=== PATIENT | female | born 1975 | race Caucasian/White ===

== ENCOUNTER 2016-12-30 10:17 | Inpatient (IN) | payer BC ==
[~2016-12-30] VITALS: Ht 172.7 cm; Wt 105.2 kg
[2016-12-30 11:00] VITALS: BP 90/53
[2016-12-30] MEDS ORDERED: CALCIUM CARBONATE 500 MG TAB.CHEW PO PRN (12:00)
[2016-12-30] MEDS ORDERED: 0.9 % SODIUM CHLORIDE 10 ML DISP.SYRIN. IV PRN (12:00)
[2016-12-30] MEDS ORDERED: ZOLPIDEM 5 MG TABLET. PO PRN (12:00)
[2016-12-30] MEDS ORDERED: ONDANSETRON PF 4 MG/2 ML VIAL. IV PRN (12:00)
[2016-12-30] MEDS ORDERED: ACETAMINOPHEN 325 MG TABLET. PO PRN (12:00)
[2016-12-30] MEDS ORDERED: MAGNESIUM HYDROXIDE 2,400 MG/30 ML ORAL.SUSP. PO PRN (12:00)
[2016-12-30] MEDS ORDERED: MAG HYDROX/ALUMINUM HYD/SIMETH 30 ML ORAL.SUSP PO PRN (12:00)
[2016-12-30] MEDS ORDERED: diphenhydrAMINE HCL 25 MG CAPSULE PO PRN (12:00)
[2016-12-30] MEDS ORDERED: NALOXONE 0.4 MG/ML VIAL. IV PRN (12:00)
[2016-12-30] MEDS ORDERED: diphenhydrAMINE 50 MG/ML VIAL IV PRN (12:00)
[2016-12-30 12:40] LABS: CALCIUM 8.8 mg/dL (8.5-10.1); CREATININE 0.8 mg/dL (0.6-1.0); GFR 78.3; POTASSIUM 3.4 mmol/L (3.5-5.1)
[2016-12-30 12:50] LABS: BASO % 0 % (0-3); EOS % 2 % (0-3); HEMATOCRIT 36.1 % (36.0-47.0); HEMOGLOBIN 12.6 g/dL (12.0-15.5); LYMPH # 2.7 x10^3/uL (1.0-4.8); LYMPH % 29 % (24-48); MEAN CORPUSCULAR HEMOGLOBIN 31 pg (25-35); MEAN CORPUSCULAR HGB CONC 35 g/dL (31-37); MEAN CORPUSCULAR VOLUME 89 fL (79-100); MONO % 4 % (0-9); NEUT % 65 % (31-73); PLATELET COUNT 247 x10^3/uL (140-400); RED BLOOD COUNT 4.06 x10^6/uL (3.50-5.40); RED CELL DISTRIBUTION WIDTH 14.2 % (11.5-14.5); WHITE BLOOD COUNT 9.1 x10^3/uL (4.0-11.0)
[2016-12-30] MEDS: HYDROmorphone 2 MG/ML VIAL IV PRN ×2 (12:50→15:36)
[2016-12-30] MEDS: DEXAMETHASONE SOD PHOS 4 MG/ML VIAL IV SCH ×3 (12:50→23:01)
[2016-12-30] MEDS: METHOCARBAMOL 750 MG TABLET PO SCH ×2 (12:50→20:48)
[2016-12-30 13:00] LABS: PROTHROMBIN TIME PATIENT 12.6 SEC (11.7-14.0)
--- NOTE | 2016-12-30 13:36 | PDOC1 ---
H & P H&P Ms. Nice presents to clinic with worsening pain and function in the right lower extremity. She reports that this has worsened over the last few weeks without a clear inciting event. She reports tingling and shooting pain down the right leg and thigh anteriorly to the foot. She reports decreased sensation in the right leg, as well. Over the past couple weeks, she reports difficulty maintaining urinary stream and reports some episodes of incontinent over the past couple days. She reports that she is able to ambulate but requires much assistance due to right leg pain and weakness. She presents with new lumbar MRI. Current Medication: Taking Gildess FE 1.5/0.03(ethinyl estradiol-norethindrone) 30 mcg-1.5 mg tablet 1 tab( s) orally once a day cyclobenzaprine 10 mg tablet 1 tab(s) orally PRN Gildess FE 1/0.2(ethinyl estradiol-norethindrone) 1/20 tablet TAKE 1 TABLET DAILY Neurontin(gabapentin) 300 mg capsule 1 cap(s) orally daily Aleve(naproxen) sodium 220 mg tablet 1 tab(s) orally every 8 hours Medication List reviewed and reconciled with the patient Medical History: back pain, contraception. Allergies/Intolerance: morphine, hydrocodone, phenothiazine, compazine, reglan, augmentin, omnicef Surgical History: childbirth , childbirth x2 twins , tonsillectomy 1976, gallbladder 2011, discectomy Hospitalization: see list above , [facility] for Discectomy 01/2015 Family History: Mother: alive Father: alive Maternal Grand Mother: Maternal Grand Father: Paternal Grand Mother: Paternal Grand Father: 1 brother(s) - healthy. 1 son(s) , 2 daughter(s) - healthy. twin-girls. Social History: Tobacco Questionnaire Are you a:: never smoker . Tobacco History: Has never smoked. Alcohol Screening SF Points: 1, Interpretation: Negative. Marital Status : . Occupation: [employer]. ROS: MUSCULOSKELETAL admits" options="" propid="91" itemid="[id number]" categoryid="[id number]" encounterid= "[id number]"Low back pain admits. denies" options="no,yes" propid="91" itemid= "[id number]" categoryid="[id number]" encounterid="[id number]"Joint pain denies. denies" options="no,yes" propid="91" itemid="722911" categoryid="[id number]" encounterid= "[id number]"Neck pain denies. NEUROLOGY admits" options="denies,admits" propid="91" itemid="[id number]" categoryid="[id number]" encounterid="[id number]"Paresthesia/numbness admits. denies" options="no,yes" propid="91" itemid="272135" categoryid="[id number]" encounterid="[id number]"Headache denies. denies" options="no,yes" propid="91" itemid="925015" categoryid="[id number] " encounterid="[id number]"Visual changes denies. Objective: Vitals: Ht 68 in, Wt unable, HR 107 /min, SaO2 97 Past Results: Examination: No acute distress, well developed and well nourished" categoryPropId="[id number]" examid="[id number]"GENERAL APPEARANCE: No acute distress, well developed and well nourished. normocephalic, atraumatic; pupils equal, round, and reactive to light and accomodation" categoryPropId="[id number]" examid="[id number]"HEENT: normocephalic, atraumatic; pupils equal, round, and reactive to light and accomodation. supple" categoryPropId="[id number]" examid="[id number]"NECK: supple. pulse regular" categoryPropId="86062" examid="[id number]"HEART: pulse regular. normal shape and expansion" categoryPropId="[id number]" examid="[id number]"CHEST: normal shape and expansion. respirations even and nonlabored" categoryPropId="[id number]" examid="[id number]"LUNGS: respirations even and nonlabored. alert and oriented x 4, speech fluent, memory and general fund of knowledge are baseline, cooperative with exam, cranial nerves II-XII intact, motor strength normal in upper and lower extremities except 3-/5 right knee extension right extensor hallucis, 4-/5 right plantarflexion, DTR hyporeflexive left patellar relative to the right, sensation decreased to light touch in the right leg relative to the left" categoryPropId="[id number]" examid="[id number]"NEUROLOGIC EXAM: alert and oriented x 4, speech fluent, memory and general fund of knowledge are baseline, cooperative with exam, cranial nerves II-XII intact, motor strength normal in upper and lower extremities except 3-/5 right knee extension right extensor hallucis, 4-/5 right plantarflexion, DTR hyporeflexive left patellar relative to the right, sensation decreased to light touch in the right leg relative to the left. warm and dry, good turgor" categoryPropId="[id number]" examid="[id number]"SKIN: warm and dry, good turgor. no cyanosis, clubbing, or edema" categoryPropId="[id number]" examid="[id number] "EXTREMITIES: no cyanosis, clubbing, or edema. palpable in both legs" categoryPropId="[id number]" examid="[id number]"PERIPHERAL PULSES: palpable in both legs. no swelling or deformity in the extremities, muscle tone appears normal" categoryPropId="[id number]" examid="[id number]"MUSCULOSKELETAL: no swelling or deformity in the extremities, muscle tone appears normal. appropriate mood and affect, judgement and insight appear normal" categoryPropId ="[id number]" examid="[id number]"PSYCH appropriate mood and affect, judgement and insight appear normal. Assessment: Assessment: Herniated lumbar intervertebral disc - M51.26 (Primary) Lumbar radicular pain - M54.16 Weakness - R53.1 Plan: Treatment: Herniated lumbar intervertebral disc Notes: Imaging findings and therapeutic options were discussed. Given the severity and nature of the symptoms, physical exam findings, and radiographic findings, feel that she may benefit from surgical decompression. A right L3-4 hemilaminotomy with discectomy was discussed with explanation of potential risks , benefits, and expectations. After careful consideration of these things, she elects to proceed. Will admit from clinic and plan to complete the aforementioned surgery. All questions answered. All in agreement. Others Notes: There is an MRI lumbar spine from 12/29/16. Some degenerative changes are noted. There are post-surgical changes noted left L4-5 without significant stenosis or recurrent disk. There is a new disk herniation in the right lateral recess at L3-4 with mass effect of the neural elements at this location. There is no central stenosis. CAMI WEEMS MD Dec 30, 2016 13:36
[2016-12-30] MEDS ORDERED: DEXTROSE 50% 25 GM / 50ML DISP.SYRIN. IV PRN (13:45)
[2016-12-30] MEDS ORDERED: GABA600T2 PO (14:13)
[2016-12-30] MEDS ORDERED: RANI150C PO (14:13)
[2016-12-30] MEDS ORDERED: OMEP20CA9 PO (14:13)
[2016-12-30] MEDS ORDERED: LISI1TAB7 PO (14:13)
[2016-12-30] MEDS ORDERED: POLY17PO29 PO (14:13)
[2016-12-30] MEDS ORDERED: CETI10TA22 PO (14:13)
[2016-12-30] MEDS ORDERED: DULO60CA6 PO (14:13)
[2016-12-30] MEDS ORDERED: LISD20CA4 PO (14:13)
[2016-12-30 15:00] VITALS: BP 111/66
[2016-12-30] MEDS: POLYETHYLENE GLYCOL 3350 17 GM PACKET. PO SCH (15:00)
[2016-12-30] MEDS: LISINOPRIL 20 MG TABLET PO SCH (15:00)
[2016-12-30] MEDS: DULoxetine HCL 30 MG CAPSULE.DR PO SCH (15:00)
[2016-12-30] MEDS: CETIRIZINE HCL 10 MG TABLET. PO SCH (15:00)
[2016-12-30] MEDS: hydroCHLOROthiazide 25 MG TABLET PO SCH (15:00)
[2016-12-30] MEDS ORDERED: FLU VACC QS2017-18 (36MOS+)/PF 0.5 ML SYRINGE. VAX IM ONE (17:00)
[2016-12-30] MEDS: FERROUS SULFATE 325 MG TABLET. PO SCH (17:18)
[2016-12-30] MEDS: CALCIUM CARB/VIT D3 500/200 TABLET. PO SCH (17:18)
[2016-12-30] MEDS: traMADol 50 MG TABLET PO PRN ×2 (17:24→23:01)
[2016-12-30] MEDS: INSULIN ASPART 300 UNITS/3 ML INSULN.PEN SQ SCH (17:33)
[2016-12-30 19:00] VITALS: BP 128/77
[2016-12-30] MEDS: GABAPENTIN 300 MG CAPSULE. PO SCH (20:49)
[2016-12-30] MEDS: SENNOSIDES/DOCUSATE 8.6/50MG TABLET. PO SCH (20:55)
[2016-12-30] MEDS: DOCUSATE SODIUM 100 MG CAPSULE. PO SCH (20:55)
[2016-12-30] MEDS ORDERED: INSULIN ASPART 300 UNITS/3 ML INSULN.PEN SQ ONE (21:00)
[2016-12-30 23:11] VITALS: BP 126/66
[2016-12-31] VITALS (12 sets, daily range): BP systolic 103–165; BP diastolic 49–100
[2016-12-31] MEDS: HYDROmorphone 2 MG/ML VIAL IV PRN ×7 (02:56→13:19)
[2016-12-31] MEDS: traMADol 50 MG TABLET PO PRN ×2 (04:31→18:14)
[2016-12-31] MEDS: DEXAMETHASONE SOD PHOS 4 MG/ML VIAL IV SCH ×3 (05:58→17:55)
[2016-12-31] MEDS ORDERED: fentaNYL PF VIAL 100 MCG/2 ML VIAL IV PRN ×2 (07:00)
[2016-12-31] MEDS ORDERED: LIDOCAINE 1% PF 2 ML VIAL. ID PRN (07:00)
[2016-12-31] MEDS ORDERED: ONDANSETRON PF 4 MG/2 ML VIAL. IV PRN (07:00)
[2016-12-31] MEDS ORDERED: IV RINGERS,LACTATED 1000ML 1,000 ML IV SCH (07:00)
[2016-12-31] MEDS ORDERED: LIDOCAINE 1%/EPI 1:100,000 20 ML VIAL. ONE (07:02)
[2016-12-31] MEDS ORDERED: THROMBIN TOPICAL 20,000 UNIT SPRAY.SYRN KIT TP ONE (07:03)
[2016-12-31] MEDS ORDERED: BUPIVACAINE 0.5% 50 ML VIAL. ONE (07:03)
[2016-12-31] MEDS ORDERED: GELATIN SPONGE SIZE 100. ONE (07:03)
[2016-12-31] MEDS: PANTOPRAZOLE 40 MG TABLET.DR. PO SCH (07:30)
[2016-12-31] MEDS: FERROUS SULFATE 325 MG TABLET. PO SCH ×2 (08:00→17:50)
[2016-12-31] MEDS ORDERED: BACITRACIN 50,000 UNIT in IV NORMAL SALINE 1000ML BAG 1,000 ML IRR ONE (08:00)
[2016-12-31] MEDS: CALCIUM CARB/VIT D3 500/200 TABLET. PO SCH ×2 (08:00→17:49)
[2016-12-31] MEDS: INSULIN ASPART 300 UNITS/3 ML INSULN.PEN SQ SCH ×3 (08:00→17:55)
[2016-12-31] MEDS: DULoxetine HCL 30 MG CAPSULE.DR PO SCH (08:01)
[2016-12-31] MEDS: DOCUSATE SODIUM 100 MG CAPSULE. PO SCH ×2 (08:01→20:41)
[2016-12-31] MEDS: hydroCHLOROthiazide 25 MG TABLET PO SCH (08:01)
[2016-12-31] MEDS: POLYETHYLENE GLYCOL 3350 17 GM PACKET. PO SCH (08:01)
[2016-12-31] MEDS: METHOCARBAMOL 750 MG TABLET PO SCH ×3 (08:02→20:41)
[2016-12-31] MEDS: LISINOPRIL 20 MG TABLET PO SCH (08:02)
[2016-12-31] MEDS: MULTIVITAMIN with MINERAL TABLET. PO SCH (08:02)
[2016-12-31] MEDS: CETIRIZINE HCL 10 MG TABLET. PO SCH (08:02)
[2016-12-31] MEDS: SENNOSIDES/DOCUSATE 8.6/50MG TABLET. PO SCH ×2 (08:02→20:41)
[2016-12-31] MEDS ORDERED: SUCCINYLCHOLINE 200 MG/10 ML VIAL. ONE (08:04)
[2016-12-31] MEDS ORDERED: PROPOFOL 20 ML IV ONE (08:04)
[2016-12-31] MEDS ORDERED: ROCURONIUM 100 MG/10 ML VIAL. ONE (08:04)
[2016-12-31] MEDS ORDERED: LIDOCAINE 2% PF Vial for OR 5 ML VIAL. ONE (08:04)
[2016-12-31] MEDS ORDERED: fentaNYL PF VIAL 100 MCG/2 ML VIAL ONE (08:05)
[2016-12-31] MEDS ORDERED: 0.9 % SODIUM CHLORIDE 50 ML VIAL. IJ ONE (08:09)
[2016-12-31] MEDS ORDERED: PROPOFOL 50 ML IV ONE ×2 (08:29→10:33)
[2016-12-31] MEDS ORDERED: REMIFENTANIL 2 MG VIAL. IV ONE (08:29)
[2016-12-31 08:33] LABS: NEG OBC UR NEG; POS OBC UR POS
[2016-12-31] MEDS ORDERED: NON FORMULARY ITEM (Lisdexamfetamine Dimesylate (Vyvanse) 1 CAP) PO SCH (09:00)
[2016-12-31] MEDS ORDERED: NON FORMULARY ITEM (Lisinopril/Hydrochlorothiazide (Lisinopril-Hctz 20-25 Mg Tab) 1 TAB) PO SCH (09:00)
[2016-12-31] MEDS ORDERED: CLINDAMYCIN 600MG PREMIX 50 ML IV ONE (09:06)
[2016-12-31] MEDS ORDERED: DEXAMETHASONE SOD PHOS 20 MG/5 ML VIAL. ONE (09:43)
[2016-12-31] MEDS ORDERED: DESFLURANE > 120 MINUTES IH ONE (09:43)
[2016-12-31] MEDS ORDERED: CLINDAMYCIN 600MG PREMIX 50 ML IV SCH (09:45)
[2016-12-31] MEDS ORDERED: ONDANSETRON PF 4 MG/2 ML VIAL. ONE (10:12)
--- NOTE | 2016-12-31 11:15 | PDOC ---
BRIEF OPERATIVE NOTE Date: Dec 31, 2016 Pre-Op Diagnosis lumbar disk herniation, lumbar radiculopathy, weakness Post-Op Diagnosis same Procedure Performed right L3-4 hemilaminotomy with discectomy Surgeon Campbell Gandy Dancer none Anesthesiologist Bladimir Anesthesia Type: General Blood Loss 25mL Specimens Obtained disk and decompression Findings large disk herniation with mass effect on the adjacent neural elements, neuromonitoring improved upon completion of procedure Complications none apparent CAMI WEEMS MD Dec 31, 2016 11:15
[2016-12-31] MEDS ORDERED: HYDROmorphone 2 MG/ML VIAL ONE (11:31)
--- NOTE | 2016-12-31 11:51 | OP ---
DATE OF SURGERY: 12/31/2016 PREOPERATIVE DIAGNOSES: Lumbar disk herniation, lumbar radiculopathy, weakness. POSTOPERATIVE DIAGNOSES: Lumbar disk herniation, lumbar radiculopathy, weakness. PROCEDURE: Right lumbar 3-4 hemilaminotomy with diskectomy. SURGEON: Osmel Weems MD CLAM SHUCKING MACHINE TENDER: None. ANESTHESIA: General. COMPLICATIONS: None intraprocedurally. INDICATIONS FOR THE PROCEDURE: The patient is a 41-year-old female who over the past few weeks has developed right lower extremity pain and weakness. Imaging revealed a prominent disk herniation on the right at lumbar 3-4 with significant mass effect on the neural elements. Based on her physical exam complaints and imaging, it was felt that decompression with diskectomy may be of significant benefit. Please refer to the patient chart for additional details. DESCRIPTION OF PROCEDURE: After informed consent was obtained, the patient was brought into the operating room. She was placed under general anesthesia. She was placed in prone position on the Pieter table. All pressure points were checked and padded appropriately. Neuro monitoring was instituted and baseline potentials were obtained. The lumbar region was prepped and draped in the usual sterile fashion. The patient had a previous lumbar incision. Fluoroscopy was utilized to localize on appropriate incision location. The prior incision was reopened at the cephalad aspect and with a 10 blade scalpel extended slightly cephalad, centered over the region of lumbar 3-4. Monopolar electrocautery was utilized to dissect the avascular midline to the spinous processes of lumbar 3 and lumbar 4 and rightward across the lamina at this location. Level was verified with fluoroscopy prior to the initiation of decompression. A right hemilaminotomy was performed at lumbar 3-4 utilizing pneumatic drill as well as Kerrison rongeur. The underlying ligament was gently dissected from thecal sac with a Santa and removed with Kerrison rongeur. The neural elements were gently retracted medially and a prominent annulus was identified. An 11 blade scalpel was utilized to create a small annulotomy and large amount of disk material emerged under pressure. This was removed with a pituitary rongeur. Additional disk material was gently teased posterolaterally with a blunt nerve hook and then removed with pituitary rongeur. Upon completion of these things, the neural elements were noted to be very well decompressed. This was verified with direct visualization as well as gentle palpation with a [place] and a blunt nerve hook. Also, it was noted that neuro monitoring potentials were improved compared to baseline upon completion of decompression and at the completion of the procedure. Once decompression was complete, attention was turned to closure. Pristine hemostasis was achieved with FloSeal, cottonoids, some use of irrigation and some use of bipolar electrocautery. The wound was generously irrigated with antibiotic irrigation prior to the final closure. The muscles and fascia were then reapproximated with 0 Vicryl in a simple interrupted fashion. The subcutaneous tissues were reapproximated with 2-0 Vicryl in interrupted inverted fashion. The skin was reapproximated with 4-0 Vicryl in running subcuticular fashion. Mastisol and Steri-Strips were applied and the wound was dressed with Telfa and Tegaderm. At the end of procedure, all needle and sponge counts were correct x 2. The patient was extubated in the operating room and taken to recovery in stable condition. There were no intraprocedural complications apparent. OSMEL WEEMS MD DR: CRISTA/karen JOB#: [id number] / [id number]
[2016-12-31] MEDS ORDERED: INFLUENZA VAX SCREEN BY RX. MC ONE (14:00)
[2016-12-31] MEDS: GABAPENTIN 300 MG CAPSULE. PO SCH (20:41)
[2016-12-31] MEDS ORDERED: POLYETHYLENE GLYCOL 3350 17 GM PACKET. PO ONE (21:00)
[2017-01-01] MEDS: traMADol 50 MG TABLET PO PRN ×3 (01:29→12:29)
[2017-01-01 03:00] VITALS: BP 98/60
[2017-01-01] MEDS: PANTOPRAZOLE 40 MG TABLET.DR. PO SCH (06:22)
[2017-01-01 07:00] VITALS: BP 92/56
[2017-01-01] MEDS: LISINOPRIL 20 MG TABLET PO SCH (08:30)
[2017-01-01] MEDS: CETIRIZINE HCL 10 MG TABLET. PO SCH (08:31)
[2017-01-01] MEDS: FERROUS SULFATE 325 MG TABLET. PO SCH (08:31)
[2017-01-01] MEDS: MULTIVITAMIN with MINERAL TABLET. PO SCH (08:31)
[2017-01-01] MEDS: METHOCARBAMOL 750 MG TABLET PO SCH (08:31)
[2017-01-01] MEDS: DULoxetine HCL 30 MG CAPSULE.DR PO SCH (08:31)
[2017-01-01] MEDS: SENNOSIDES/DOCUSATE 8.6/50MG TABLET. PO SCH (08:32)
[2017-01-01] MEDS: DOCUSATE SODIUM 100 MG CAPSULE. PO SCH (08:32)
[2017-01-01] MEDS: CALCIUM CARB/VIT D3 500/200 TABLET. PO SCH (08:32)
[2017-01-01] MEDS: hydroCHLOROthiazide 25 MG TABLET PO SCH (08:32)
[2017-01-01] MEDS: POLYETHYLENE GLYCOL 3350 17 GM PACKET. PO SCH (08:33)
[2017-01-01] MEDS ORDERED: FAMOTIDINE 20 MG TABLET. PO SCH (09:00)
--- NOTE | 2017-01-01 10:55 | DISCH ---
DISCHARGE INSTRUCTIONS Condition on Discharge Condition on Discharge: Stable Activity After Discharge Activity Instructions for Disc: Avoid exertion, Other, see below (avoid excess bending or twisting, no liftinge more than 10 lbs, no strenuous activity) Bathing Instructions: Shower-keep dressing dry Lifting Instructions after Dis: Do not lift >10 pounds Wound Incision Care Wound/Incision Care: Ice to area for comfort, Other, see below (keep incision clean and dry; do not soak, scrub, or submerge incision; may remove dressing day three after surgery and leave open to air; may cover as needed with breathable gauze and tape thereafter) Contacting the after DC Call your doctor for: Concerns you may have Follow-Up Follow up with: Dr. Weems in two weeks [phone] CAMI WEEMS MD Jan 01, 2017 10:55
--- NOTE | 2017-01-01 10:58 | PDOC ---
SUBJECTIVE Subjective Denies acute complaints. Reports resolution of right leg pain and numbness. Denies any bowel/bladder dysfunction. Reports leg strength is now normal. Has ambulated with therapy without significant problems. OBJECTIVE Vital Signs Vital Signs Date Time Temp Pulse Resp B/P (MAP) Pulse Ox O2 Delivery O2 Flow Rate FiO2 01/01/17 09:14 Room Air 01/01/17 08:30 77 92/56 01/01/17 07:45 Room Air 01/01/17 07:00 97.4 77 20 92/56 (68) 96 Room Air 97.4 01/01/17 06:26 20 98 Room Air 01/01/17 03:00 97.9 67 16 98/60 (73) 98 Room Air 97.9 01/01/17 02:30 20 98 01/01/17 01:29 20 98 Room Air 12/31/16 23:00 97.7 83 16 104/49 (67) 98 Room Air 97.7 12/31/16 20:00 Room Air 12/31/16 19:00 97.5 84 24 105/50 (68) 98 Room Air 97.5 12/31/16 18:14 96 Room Air 12/31/16 16:30 92 16 139/55 (83) 96 Room Air 12/31/16 15:30 91 16 133/60 (84) 94 Room Air 12/31/16 14:15 106 16 128/74 (92) 94 Room Air 12/31/16 14:15 111 16 126/84 (98) 94 Room Air 12/31/16 13:51 99 Room Air 12/31/16 13:45 102 16 122/67 (85) 95 Room Air 12/31/16 13:19 99 Room Air 12/31/16 13:15 81 16 103/55 (71) 96 Room Air 12/31/16 13:00 91 16 124/84 (97) 92 Room Air 12/31/16 12:35 97.9 87 16 120/66 (84) 97 Room Air 97.9 12/31/16 12:20 Nasal Cannula 2 12/31/16 12:20 99 Nasal Cannula 2.0 12/31/16 12:19 20 99 Nasal Cannula 2.0 12/31/16 12:15 97.0 100 20 112/53 97 Nasal Cannula 2 97.0 12/31/16 12:01 20 99 Room Air 12/31/16 12:00 100 20 110/52 97 Nasal Cannula 2 12/31/16 11:50 20 95 Simple Mask 10.0 12/31/16 11:44 92 20 114/69 97 12/31/16 11:33 20 95 Simple Mask 10.0 12/31/16 11:29 85 20 122/77 99 Simple Mask 10 12/31/16 11:14 Mask 10 12/31/16 11:14 97.6 111 20 130/62 100 Simple Mask 10 97.6 12/31/16 11:08 () I & O Intake and Output 01/02/17 07:00 Intake Total 360 ml Balance 360 ml Intake Oral 360 ml PHYSICAL EXAM Physical Exam AAOx4, NAD, MORAN now 5/5 throughout, sensation intact, LT, c/d/i ASSESSMENT/PLAN Assessment/Plan POD 1 lumbar discectomy -recovering well thus far -cleared by therapy for d/c home -continue activities with standard post-op restrictions -d/c home and f/u 2 weeks with Campbell/DON [phone] Rx for ultram and robaxin on chart Problems: COMMENT Lab Laboratory Tests Test 12/31/16 12:04 12/31/16 16:26 01/01/17 07:26 Glucose (Fingerstick) 129 mg/dL (70-99) 186 mg/dL (70-99) 73 mg/dL (70-99) CAMI WEEMS MD Jan 01, 2017 10:58
[2017-01-01 11:00] VITALS: BP 100/60
--- NOTE | 2017-01-03 11:05 | PATHOLOGY ---
PATHOLOGY REPORT * * * * * * * * FINAL DIAGNOSIS: Cartilage and bone, "lumbar decompression and disc": - Fragments of bone, cartilage and surrounding fibrous tissue consistent with disc material. - There is no evidence of malignancy. (SHA:amalia; 01/03/2017) REPORT ELECTRONICALLY SIGNED BY: Juan Antonio Pepper M.D. DATE/TIME: 01/03/2017 11:04 * * * * * * * * GROSS PATHOLOGY: Received in formalin labeled "Isabella Pearce, lumbar decompression and disc" are multiple segments of parsons, rubbery, and gritty tissue admixed with bone. The specimen measures 2.2 x 1.8 x 0.4 cm in aggregate dimensions. The tissue is submitted entirely in cassette A1, following decalcification. (JPM; 12/31/16) INITIAL CPT CODE(S): A; 20196, 54745 Professional services [place] [address] Technical services performed by [facility] at [address] [place] [address], [facility] [address] [address]. SPECIMEN(S) RECEIVED: A.Lumbar decompression and disc CLINICAL HISTORY: Lumbar herniated disc PATIENT: ISABELLA PEARCE /AGE: 912/13/1975 (Age: 41) PATIENT #: [id number] ALT CASE #: SPECIMEN COLLECTION DATE: 12/31/2016 SPECIMEN RECEIVED DATE: 12/31/2016 [facility] - [address] [place] [address] - PHONE: [phone] * * * END OF REPORT * * *
== END 2017-01-01 12:32 | disposition home or self-care (01) | DRG 520 ==
LOC: 4 NORTH 10:31
PROVIDERS: ADMIT Neurological Surgery; ATTEND Neurological Surgery
PROC: 01NB0ZZ Release Lumbar Nerve, Open Approach (ICD-10-PCS; 2016-12-31)
PROC: 4A11X4G Monitoring of Peripheral Nervous Electrical Activity, Intraoperative, External Approach (ICD-10-PCS; 2016-12-31)
PROC: 0SB20ZZ Excision of Lumbar Vertebral Disc, Open Approach (ICD-10-PCS; principal; 2016-12-31 09:15)
DX: M51.16 Intervertebral disc disorders with radiculopathy, lumbar region (principal); R53.1 Weakness; Z88.6 Allergy status to analgesic agent; Z88.8 Allergy status to other drugs, medicaments and biological substances
CPT/HCPCS: 36415; 76000; 80048; 81025; 82962; 85025; 85610; 85730; 88304; 88311; J0330; J1100; J1170; J1200; J1815; J2405; J2704; J3010; J3490; J7030; J7120; Q0163; 97530; J2001